=== PATIENT | female | born 1985 | race Two or more races ===

== ENCOUNTER 2020-10-22 13:08 | Day surgery (SDC) | payer OTHER ==
[~2020-10-22 13:08] MED LIST: BALANCED SALT IRRIG SOLN COMB2 15 ML BOTTLE ONE; BESIFLOXACIN HCL 0.6% OPH SUSP 5 ML BOTTLE OD PRN; BUPIVACAINE HCL 0.75% INJ/PF (7.5 MG/1 ML) 10 ML SDV OD PRN; FENTANYL CITRATE INJ/PF 100 MCG/2 ML AMPUL ONE; KETOROLAC TROMETHAMINE 0.45% 4 DROP/0.4 ML DROPERETTE OD PRN; LIDOCAINE 1%/EPINEPHRINE INJ 20 ML VIAL ONE; LIDOCAINE 4% INJ/PF (40 MG/ML) 5 ML AMPUL OD PRN; MIDAZOLAM 2 MG/2 ML INJ ONE; MITOMYCIN OPH SOLN 0.02% 2 ML OP PRN; ONDANSETRON HCL INJ/PF 4 MG/2 ML SDV ONE; POVIDONE-IODINE 5% OPH PREP SOLN 30 ML ONE; TOBRAMYCIN SULFATE/DEXAMETH OPH OINTMENT 3.5 GM ONE
[2020-10-22] MEDS: TETRACAINE HCL 0.5% OPH SOLN 4 ML OD PRN ×3 (14:10→14:44)
--- NOTE | 2020-10-22 16:07 | Operative Report ---
Operative Report-[facility] Operative Report: DATE OF SURGERY: October 22, 2020 PREOPERATIVE DIAGNOSIS: Pterygium, RIGHT EYE. POSTOPERATIVE DIAGNOSIS: Pterygium, RIGHT EYE. PROCEDURE PERFORMED: Pterygium removal with mitomycin-C and amniotic membrane graft right eye. SURGEON: Pool Maguire, MEDICATIONS AND ANESTHESIA: Versed: IV Versed Tetracaine drops: 1 to 2 drops given as needed COMPLICATION: [None] INDICATIONS FOR SURGERY: Progressive pterygium threatening visual acuity. PROCEDURE: Consent: The risks, benefits and alternatives of this procedures was discussed with the patient. The patient read and signed the consent forms, was identified and was seated in the exam chair. The area of the pterygium was marked and Bran scissors were used to dissect of the pterygium off the sclera and cornea. Tenon's capsule was removed. Hemostasis was achieved with cautery. Mitomycin-C was placed over the bare sclera for approximately 2 minutes then rinsed with balanced salt solution. Next the graft was measured and placed over the bladder sclera. Fibrin glue was used to adhere the graft to the bare sclera. At this point the speculum was removed and the patient was brought to the recovery room in stable condition Postop medication: TobraDex ointment intraoperative by other: []
== END 2020-10-22 16:02 | disposition home or self-care (01) ==
LOC: SC 13:08
PROVIDERS: ATTEND Ophthalmology
DX: H11.001 Unspecified pterygium of right eye (principal); Z01.812 Encounter for preprocedural laboratory examination; Z20.822 Contact with and (suspected) exposure to COVID-19
CPT/HCPCS: 87635; 65426; C9250; J2250; J3490 ×5; J3010; J2405; J9280; C9803; 88305